=== PATIENT | male | born 1975 | race Caucasian/White ===

== ENCOUNTER 2020-08-02 09:28 | Outpatient (REF) | payer SELFPAY ==
--- NOTE | 2020-08-02 07:32 | CT_ITS ---
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 Axial MIP volume rendering provided. Sagittal and coronal reformatted images were obtained. This CT examination was performed using dose optimization techniques as appropriate, variously including the following: *Automated exposure control *Adjustment of mA and/or kV according to patient size (this includes techniques or standardized protocols for targeted exams where dose is matched to indication/reason for exam; i.e. extremities or head) *Use of iterative reconstruction technique DLP: 162 mGy-cm FINDINGS: LUNGS: There is a 6 mm peripheral or subpleural right middle lobe nodule adjacent to the minor fissure axial image 110 series 13 that is stable. There is a stable central peribronchial vascular nodule in the superior segment of the right lower lobe. This measures approximately 7 mm on sagittal and coronal reconstructions. There is otherwise overall interval decrease in size of bilateral pulmonary nodules from most recent exam May 2020. There is interval decrease in thick bandlike atelectasis or small infiltrates in the lingula and left lower lobe. There are increased interstitial markings seen in the anterior segment of the right upper lobe for example axial image 88 series 13 that are stable. No new pulmonary nodules are seen. MEDIASTINUM: There are small mediastinal lymph nodes that are stable. No enlarged lymph nodes are seen. The heart does not appear enlarged. There is no coronary artery calcification. There is no pericardial effusion. PLEURA: There is pleural thickening adjacent to the peripheral atelectasis/consolidation in the left lower lobe for example axial image 150 series 13 that is stable. There is no pleural effusion. AXILLA: No chest wall mass or enlarged axillary lymph nodes are seen. UPPER ABDOMEN: Unremarkable. OSSEOUS STRUCTURES: There are mild degenerative changes of the spine. IMPRESSION: Continued interval decrease in pulmonary nodules and thick bandlike subsegmental atelectasis or small infiltrates in the left upper and left lower lobes. Stable minimal pleural thickening adjacent to the left lower lobe.
== END 2020-08-02 09:29 | disposition home or self-care (01) ==
LOC: HO.CT 09:28
PROVIDERS: Visit Provider Internal Medicine Pulmonary Disease
DX: J84.89 Other specified interstitial pulmonary diseases (principal)
CPT/HCPCS: 71250

== ENCOUNTER → 2020-08-08 09:06 | Outpatient (BNVA) | payer OTHER, SELFPAY | PROVIDERS: PCP Internal Medicine; Referring Provider Internal Medicine; Visit Provider Internal Medicine Pulmonary Disease | DX: Z76.89 Persons encountering health services in other specified circumstances (principal) ==

== ENCOUNTER 2020-09-18 06:21 | Outpatient (REF) | payer OTHER, SELFPAY | END 2020-09-18 06:22 | disposition home or self-care (01) | LOC: HO.LAB 06:21 | PROVIDERS: PCP Internal Medicine; Visit Provider Internal Medicine | DX: Z20.828 Contact with and (suspected) exposure to other viral communicable diseases (principal) | CPT/HCPCS: C9803; U0003 ==

== ENCOUNTER → 2021-01-24 08:55 | Outpatient (BNVA) | payer OTHER, SELFPAY | PROVIDERS: PCP Internal Medicine; Visit Provider Internal Medicine Pulmonary Disease ==

== ENCOUNTER 2021-04-07 10:50 | Emergency (ER) | payer OTHER, SELFPAY ==
[2021-04-07 11:26] VITALS: BP 127/78; PULSE 69; RESP 16; TEMP 36.7; O2SAT 98; BMI 26.1
[2021-04-07 12:52] LABS: MANUAL DIFF FLAG NO
[2021-04-07 12:54] LABS: Basophils Absolute Auto 0.1 X10*3/uL (0.0-0.2); Basophils Percent Auto 0.5 % (0-2); Eosinophils Absolute Auto 0.2 X10*3/uL (0.0-0.4); Eosinophils Percent Auto 2.3 % (0-4); Hematocrit 42.6 % (42-52); Hemoglobin 15.2 g/dl (14.0-18.0); Imm Gran Abs Auto 0.02 X10*3/uL (0.00-0.03); Imm Gran Pct Auto 0.2 % (0.0-0.4); Lymphocytes Absolute Auto 2.1 X10*3/uL (1.2-4.9); Lymphocytes Percent Auto 21.3 % (20-40); Mean Corpuscular HGB Conc 35.7 g/dl (31.0-36.0); Mean Corpuscular Hemoglobin 34.2 pg (27.0-33.0); Mean Corpuscular Volume 95.7 fL (80-98); Mean Platelet Volume 9.2 fL (9.4-12.4); Monocytes Absolute Auto 0.8 X10*3/uL (0.1-1.2); Monocytes Percent Auto 7.9 % (2-11); Neutrophils Absolute Auto 6.8 X10*3/uL (2.0-8.3); Neutrophils Percent Auto 67.8 % (45-73); Platelet Count 271 X10*3/uL (160-400); Red Blood Count 4.45 X10*6/uL (4.60-5.80); Red Cell Distribution Width 12.5 % (11.0-16.0); White Blood Count 10.1 X10*3/uL (4.8-10.8)
[2021-04-07 13:25] LABS: Lactic Acid 1.2 mmol/L (0.5-2.0)
[2021-04-07 13:29] LABS: Anion Gap 13 (12-20); Blood Urea Nitrogen 12 mg/dL (9-16); Calcium 9.5 mg/dL (8.4-10.2); Carbon Dioxide 24 mmol/L (22-29); Chloride 107 mmol/L (96-108); Creatinine Clr Calc Pharmacy 107.4; Estimated Glomerular Filt Rate > 60; Glucose Random 87 mg/dL (60-115); Potassium 4.2 mmol/L (3.3-5.1); Sodium 140 mmol/L (135-145)
[2021-04-07 13:30] LABS: Alanine Aminotransferase 19 U/L (0-40); Albumin Level 4.6 g/dL (3.5-5.0); Alkaline Phosphatase 74 U/L (39-117); Aspartate Amino Transferase 16 U/L (5-37); Bilirubin Direct < 0.2 mg/dL (0.0-0.5); Bilirubin Total 0.3 mg/dL (0.0-1.0); Total Protein 7.1 g/dL (6.5-8.0)
--- NOTE | 2021-04-07 13:47 | ED_ITS ---
HPI - General Adult General Chief complaint: General Medical Stated complaint: eye swelling Time Seen by Provider: 04/07/21 11:46 Source: patient Mode of arrival: ambulatory History of Present Illness HPI narrative: 45-year-old male with a past medical history of rheumatoid arthritis, asthma, presenting to the ED complaining of left eye swelling and erythema x2 days. Admits was seen by PCP ZENIA and sent to ED for further evaluation. Reports bug bite to right eye about a week ago, has been using erythromycin antibiotic ointment with improvement. Admits to clear drainage/tearing from L eye. Denies visual change/loss, pain with eye movement, trauma/falls, fever, chills. Does not wear contacts, does were glasses Onset (ago): day(s) Related Data Home Medications Medication Instructions Recorded Confirmed adalimumab 40 mg/0.8 mL mg SUBCUT Q2W 08/08/20 subcutaneous pen kit albuterol sulfate 90 mcg/actuation INHALATION 08/08/20 aerosol inhaler ergocalciferol (vitamin D2) 1,250 1,250 mcg PO QWEEK 08/08/20 mcg (50,000 unit) capsule folic acid 1 mg tablet 1 mg PO DAILY 08/08/20 methotrexate sodium 2.5 mg tablet 15 mg PO QWEEK 08/08/20 Previous Rx's Medication Instructions Recorded amoxicillin-pot clavulanate 1 tab PO Q12H 7 Days #14 tab 04/07/21 [Augmentin] clindamycin HCl 300 mg PO Q8H 7 Days #21 cap 04/07/21 Allergies Allergy/AdvReac Type Severity Reaction Status Date / Time No Known Allergies Allergy Verified 01/24/21 08:57 [No Known Allergies*] Review of Systems Review of Systems: Constitutional: No Fever, No Chills ENT/Mouth: No Hearing loss, No Ear Pain, No sore throat, No Rhinorrhea Eyes: + Eye Pain, +No Swelling, + Redness, No Foreign Body, + Discharge, No Vision Changes Cardiovascular: No Chest Pain, No SOB Respiratory: No Cough, No Dyspnea Gastrointestinal: No Nausea, No Vomiting Musculoskeletal: No joint pain Skin: No Skin Lesions, No rash Neuro: No Weakness, No Headache Yes all other systems are reviewed and are negative [facility] Past Medical History Attestation statement: The following information was validated with the patient. Medical History (Updated 06/21/21 @ 13:47 by MARK Keene) Asthma Rheumatoid arthritis Social History Social History (Updated 08/08/20 @ 09:15 by Annabelle Box MA) Advance Directives: No Advance Directives Information Provided: Yes Physical Exam Vital Signs: Vital Signs: Last Vital Signs Temp 98.1 F 04/07/21 11:26 Pulse 69 04/07/21 11:26 Resp 16 04/07/21 11:26 BP 127/78 04/07/21 11:26 Pulse Ox 98 04/07/21 11:26 Body Mass Index 26.1 Const: General: cooperative, healthy appearing, comfortable and no acute distress Orientation/consciousness: patient oriented x3 Limitations: no limitations HENMT: Head: Yes normal to inspection and Yes atraumatic Ears: hearing grossly normal bilaterally General nose exam: Normal external nose present Face and sinus: Yes normal facial exam Eyes: Other: Erythematous internal stye noted to right medial eye General: appearance normal, both eyes and all related structures Periorbital: periorbital findings abnormal left periorbital swelling and periorbital erythema; no ecchymosis and no crepitus Conjunctivae: conjunctivae normal Sclerae: sclerae normal Pupils: Equal, round and reactive pupils present EOM: EOMs intact bilaterally (Without pain) and no movement deficit Direct Ophthalmoscopy: no photophobia Neck: Neck: Yes normal visual inspection and Yes no lymphadenopathy Resp: Effort & Inspection: normal respiratory effort Cardio: Rate: regular rate Skin: Rashes: no rashes Wounds: no wounds Neuro: General: patient oriented x3, gait normal, tone normal and moves all extremities Cranial nerves: Yes Equal, round and reactive pupils present Gait exam (Neuro): Normal gait present Extrem: General: Yes normal to inspection Medical Decision Making MDM Narrative Medical decision making narrative: 45-year-old male with a past medical history of rheumatoid arthritis, asthma, presenting to the ED complaining of left eye swelling and erythema x2 days. On exam VSS, NAD, afebrile, well appearing, nontoxic. Physical exam as above, consistent with preseptal cellulitis. No pain with EOMs, low concern for orbital cellulitis. Plan: Will obtain labs Lab Data Result diagrams: 04/07/21 12:43 04/07/21 12:43 Labs: Lab Results 04/07/21 04/07/21 04/07/21 Range/Units 12:43 12:43 12:43 WBC 10.1 (4.8-10.8) X10*3/uL RBC 4.45 L (4.60-5.80) X10*6/uL Hgb 15.2 (14.0-18.0) g/dl Hct 42.6 (42-52) % MCV 95.7 (80-98) fL MCH 34.2 H (27.0-33.0) pg MCHC 35.7 (31.0-36.0) g/dl RDW 12.5 (11.0-16.0) % Plt Count 271 (160-400) X10*3/uL MPV 9.2 L (9.4-12.4) fL Immature Gran % (Auto) 0.2 (0.0-0.4) % Neut % (Auto) 67.8 (45-73) % Lymph % (Auto) 21.3 (20-40) % [place] % (Auto) 7.9 (2-11) % Eos % (Auto) 2.3 (0-4) % Baso % (Auto) 0.5 (0-2) % Lymph # (Auto) 2.1 (1.2-4.9) X10*3/uL [place] # (Auto) 0.8 (0.1-1.2) X10*3/uL Eos # (Auto) 0.2 (0.0-0.4) X10*3/uL Baso # (Auto) 0.1 (0.0-0.2) X10*3/uL Abs Immat Gran (auto) 0.02 (0.00-0.03) X10*3/uL Absolute Neuts (auto) 6.8 (2.0-8.3) X10*3/uL Absolute Nucleated RBC 0.000 (0.0-0.012) X10*3/uL Nucleated RBC % (auto) 0.0 (0.0-0.2) /100WBC Sodium 140 (135-145) mmol/L Potassium 4.2 (3.3-5.1) mmol/L Chloride 107 (96-108) mmol/L Carbon Dioxide 24 (22-29) mmol/L Anion Gap 13 (12-20) BUN 12 (9-16) mg/dL Creatinine 0.84 (0.5-1.4) mg/dL Estim Creat Clear Calc 107.4 Estimated GFR > 60 Random Glucose 87 (60-115) mg/dL Lactic Acid (0.5-2.0) mmol/L Calcium 9.5 (8.4-10.2) mg/dL Total Bilirubin 0.3 (0.0-1.0) mg/dL Direct Bilirubin < 0.2 (0.0-0.5) mg/dL AST 16 (5-37) U/L ALT 19 (0-40) U/L Alkaline Phosphatase 74 (39-117) U/L Total Protein 7.1 (6.5-8.0) g/dL Albumin 4.6 (3.5-5.0) g/dL 04/07/21 Range/Units 12:44 WBC (4.8-10.8) X10*3/uL RBC (4.60-5.80) X10*6/uL Hgb (14.0-18.0) g/dl Hct (42-52) % MCV (80-98) fL MCH (27.0-33.0) pg MCHC (31.0-36.0) g/dl RDW (11.0-16.0) % Plt Count (160-400) X10*3/uL MPV (9.4-12.4) fL Immature Gran % (Auto) (0.0-0.4) % Neut % (Auto) (45-73) % Lymph % (Auto) (20-40) % [place] % (Auto) (2-11) % Eos % (Auto) (0-4) % Baso % (Auto) (0-2) % Lymph # (Auto) (1.2-4.9) X10*3/uL [place] # (Auto) (0.1-1.2) X10*3/uL Eos # (Auto) (0.0-0.4) X10*3/uL Baso # (Auto) (0.0-0.2) X10*3/uL Abs Immat Gran (auto) (0.00-0.03) X10*3/uL Absolute Neuts (auto) (2.0-8.3) X10*3/uL Absolute Nucleated RBC (0.0-0.012) X10*3/uL Nucleated RBC % (auto) (0.0-0.2) /100WBC Sodium (135-145) mmol/L Potassium (3.3-5.1) mmol/L Chloride (96-108) mmol/L Carbon Dioxide (22-29) mmol/L Anion Gap (12-20) BUN (9-16) mg/dL Creatinine (0.5-1.4) mg/dL Estim Creat Clear Calc Estimated GFR Random Glucose (60-115) mg/dL Lactic Acid 1.2 (0.5-2.0) mmol/L Calcium (8.4-10.2) mg/dL Total Bilirubin (0.0-1.0) mg/dL Direct Bilirubin (0.0-0.5) mg/dL AST (5-37) U/L ALT (0-40) U/L Alkaline Phosphatase (39-117) U/L Total Protein (6.5-8.0) g/dL Albumin (3.5-5.0) g/dL Discharge Plan Discharge Clinical Impression: Preseptal cellulitis of left eye Patient Disposition: Home, Self-Care Instructions: Periorbital Cellulitis in Adults (ED) Additional Instructions: your blood work was reassuring today in the emergency department Clindamycin and Augmentin or antibiotics, take as prescribed Continue to apply warm compresses to your right eye new line you should be re- evaluated in 2 days to make sure your infection is not worsening If he develops fever, worsening swelling/pain, worsening redness, any visual change/loss, or pain with eye movement return to the ED immediately Prescriptions: New clindamycin HCl 300 mg capsule 300 mg PO Q8H 7 Days Qty: 21 RF: 0 amoxicillin-pot clavulanate [Augmentin] 875-125 mg tablet 1 tab PO Q12H 7 Days Qty: 14 RF: 0 Referrals: Melany Olsen DO [Emergency Provider] - 2 days ( for re-evaluation) Aaron Verma [Physician] - 2 days Kirill Fay MD [Primary Care Provider] - 2 days (For re-evaluation) Interventions: ED Discharge Assessment Last Done: 04/07/21 13:54 Discharge Date/Time: 04/07/21 13:55
[2021-04-07] MEDS: Amoxicillin/Potassium Clav 875 MG TABLET PO (13:50)
== END 2021-04-07 13:55 | disposition home or self-care (01) ==
PROVIDERS: Physician Assistant; Emergency Provider Emergency Medicine; PCP Internal Medicine
DX: L03.213 Periorbital cellulitis (principal); M06.9 Rheumatoid arthritis, unspecified; J45.909 Unspecified asthma, uncomplicated
CPT/HCPCS: 36415; 80048; 80076; 83605; 85025; 87040; 99283

== ENCOUNTER → 2021-07-21 11:49 | Day surgery (SDC) | payer OTHER, SELFPAY ==
[2021-07-21 12:22] VITALS: BMI 25.8
[2021-07-21 12:23] VITALS: BP 127/76; PULSE 61; RESP 16; TEMP 36.8; O2SAT 97
[2021-07-21 13:30] VITALS: BP 122/82; PULSE 51; RESP 16; O2SAT 99
== END ==
PROVIDERS: PCP Internal Medicine; Visit Provider Ophthalmology
PROC: (CPT 67800; principal; 2021-07-21 14:40)
DX: H00.14 Chalazion left upper eyelid (principal); M06.9 Rheumatoid arthritis, unspecified; Z79.899 Other long term (current) drug therapy
CPT/HCPCS: 67800

== ENCOUNTER 2021-08-19 07:34 | Outpatient (REF) | payer OTHER, SELFPAY ==
--- NOTE | ~2021-08-19 | CT_ITS ---
EXAMINATION: CT CHEST WITHOUT CONTRAST CLINICAL INFORMATION: Rheumatoid lung disease with rheumatoid arthritis. COMPARISON: Previous chest CT scans most recent July 2020. TECHNIQUE: Multidetector volumetric CT imaging of the chest was done. Axial MIP volume rendering provided. Sagittal and coronal reformatted images were obtained. This CT examination was performed using dose optimization techniques as appropriate, variously including the following: *Automated exposure control *Adjustment of mA and/or kV according to patient size (this includes techniques or standardized protocols for targeted exams where dose is matched to indication/reason for exam; i.e. extremities or head) *Use of iterative reconstruction technique DLP: 138 mGy-cm FINDINGS: LUNGS: There is linear scarring or chronic subsegmental atelectasis in the lingula and left lower lobe. This appears slightly decreased from most recent exam July 2020. There is a new adjacent left lower lobe nodule that measures 4 x 8 mm axial image 374 series 7. The previously identified peripheral or subpleural 6 mm right middle lobe nodule adjacent to the minor fissure is no longer seen. There is a 2 mm right middle lobe lateral segment nodule axial image 400 series 7 that is stable. The 6 mm perivascular superior segment right lower lobe nodule axial image 268 series 7 is stable. No evidence of interstitial lung disease is seen. MEDIASTINUM: The mediastinum is normal. PLEURA: There is no pleural effusion. No pleural mass or thickening. AXILLA: No lymphadenopathy. UPPER ABDOMEN: Unremarkable. OSSEOUS STRUCTURES: Unremarkable. CT/CT chest wo con IMPRESSION: Improved scarring or subsegmental atelectasis in the lingula and left lower lobe. New 6 mm left lower lobe nodule adjacent to the medial linear scarring or chronic subsegmental atelectasis in the left lower lobe. The 6 mm peripheral or subpleural right middle lobe nodule adjacent to minor fissure is no longer seen. The other right middle and lower lobe nodules are stable.
== END 2021-08-19 07:35 | disposition home or self-care (01) ==
LOC: HO.CT 07:34
PROVIDERS: PCP Internal Medicine; Visit Provider Internal Medicine Pulmonary Disease
DX: M05.10 Rheumatoid lung disease with rheumatoid arthritis of unspecified site (principal)
CPT/HCPCS: 71250

== ENCOUNTER 2022-07-22 09:45 | Outpatient (REF) | payer OTHER, SELFPAY ==
--- NOTE | 2022-07-22 11:11 | PFT_ITS ---
Forced vital capacity 92%. FEV1 82%. FEV1/FVC ratio is 70. FEF25/75 54% and MVV 69%. Post-bronchodilator therapy, there is a slight improvement by 32% in FEF25/75. Total lung capacity 90%, residual volume 87%. Diffusion capacity 97%. CONCLUSION: Very mild degree of obstructive airway disorder with good improvement after bronchodilator therapy. This finding indicates a mild degree of bronchial asthma. Clinical correlation is recommended. MD REYNA Roque/MODL / [id number]
== END 2022-07-22 09:46 | disposition home or self-care (01) ==
LOC: HO.RESP 09:45
PROVIDERS: PCP Internal Medicine; Visit Provider Internal Medicine Pulmonary Disease
DX: M05.10 Rheumatoid lung disease with rheumatoid arthritis of unspecified site (principal)
CPT/HCPCS: 94060; 94727; 94729